=== PATIENT | female | born 1985 | race Caucasian/White ===

== ENCOUNTER 2019-05-15 20:32 | Emergency (ER) | payer OTHER ==
[2019-05-15] MEDS ORDERED: diphenhydrAMINE 50 MG/ML 1 ML VIAL IVP STA (21:30)
[2019-05-15] MEDS ORDERED: SODIUM CHLORIDE 0.9% 1,000 ML IV STA (21:30)
[2019-05-15] MEDS ORDERED: PYRIDOXINE 100 MG/ML 1 ML VIAL IVP STA (21:31)
[2019-05-15] MEDS ORDERED: DEXTROSE 5% IN WATER 1,000 ML IV STA (21:31)
[2019-05-15 21:43] LABS: Basophils # (A) 0.1 k/uL (0-0.2); Basophils % (A) 1 %; Eosinophils # (A) 0.1 k/uL (0-0.7); Eosinophils % (A) 2 %; HCT 35.8 % (34.0-46.0); HGB 12.3 gm/dL (11.4-16.0); Lymphocytes # (A) 1.8 k/uL (1.0-4.8); Lymphocytes % (A) 27 %; MCH 28.9 pg (25.0-35.0); MCHC 34.3 g/dL (31.0-37.0); MCV 84.5 fL (80.0-100.0); Mean Platelet Volume 7.3; Monocytes # (A) 0.5 k/uL (0-1.0); Monocytes % (A) 7 %; Neutrophils # (A) 4.1 k/uL (1.3-7.7); Neutrophils % (A) 62 %; Platelet Count 211 k/uL (150-450); RBC 4.23 m/uL (3.80-5.40); RDW 12.5 % (11.5-15.5); WBC 6.6 k/uL (3.8-10.6)
[2019-05-15 21:52] LABS: ALT 23 U/L (9-52); AST 18 U/L (14-36); African American GFR (CKD) >90 (>60 ml/min/1.73 sqM); Albumin 4.4 g/dL (3.5-5.0); Alkaline Phosphatase 51 U/L (38-126); Amylase 46 U/L (30-110); Anion Gap 11 mmol/L; Blood Urea Nitrogen 11 mg/dL (7-17); Calcium 9.3 mg/dL (8.4-10.2); Carbon Dioxide 25 mmol/L (22-30); Chloride 103 mmol/L (98-107); Glucose 84 mg/dL (74-99); Potassium 4.1 mmol/L (3.5-5.1); Sodium 139 mmol/L (137-145); Total Bilirubin 0.3 mg/dL (0.2-1.3); Total Protein 7.7 g/dL (6.3-8.2)
--- NOTE | 2019-05-15 22:14 | ED ---
Nausea/Vomiting/Diarrhea HPI - General Chief complaint: Nausea/Vomiting/Diarrhea Stated complaint: 8 weeks , nausea & vomiting Time Seen by Provider: 05/15/19 21:11 Source: patient Mode of arrival: ambulatory Limitations: no limitations - History of Present Illness Initial comments: 34 old female patient who is 8 weeks presents to the emergency department today for evaluation of nausea and vomiting 2 days. Patient states she has had increased and intermittent nausea and vomiting over the last week but has worsened over the last 2 days. Patient denies any hematemesis or bilious emesis. States she's been unable to keep down any food or fluids. She is not tried any medications for her symptoms. She is . States that she h as had hyperemesis with each of her previous pregnancies. She denies any fever or chills. Denies diarrhea. Denies any abdominal pain, vaginal bleeding, or vaginal discharge. She has established care with Dr. Conteh her first appointment is on May 28. She has had ultrasound confirming viable intrauterine pregnanc two weeks ago. Patient denies any recent rash, shortness breath, chest pain, constipation, back pain, numbness, tingling, dizziness, weakness, hematuria, dysuria, urinary urgency, urinary frequency, headache, visual changes, or any other complaints. - Related Data Home Medications Medication Instructions Recorded Confirmed Pnv No.95/Ferrous Fum/Folic AC 1 tab PO DAILY 05/15/19 05/15/19 [ Multivitamin Tablet] Previous Rx's Medication Instructions Recorded Doxylamine/Pyridoxine HCl (B6) 1 each PO HS #30 tablet. 05/15/19 [Kalee Boateng 10-10 mg Tablet] Allergies Allergy/AdvReac Type Severity Reaction Status Date / Time Sulfa (Sulfonamide Allergy Rash/Hives Verified 05/15/19 21:10 Antibiotics) Review of Systems ROS Statement: Those systems with pertinent positive or pertinent negative responses have been documented in the HPI. ROS Other: All systems not noted in ROS Statement are negative. Past Medical History Past Medical History: No Reported History History of Any Multi-Drug Resistant Organisms: None Reported Past Surgical History: Cholecystectomy Past Psychological History: No Psychological Hx Reported Smoking Status: Never smoker Past Alcohol Use History: None Reported Past Drug Use History: None Reported General Exam Limitations: no limitations General appearance: alert, in no apparent distress, other (This is a well- developed, well-nourished adult female patient in no acute distress. Vital signs upon presentation are temperature 98.0F, pulse 80, respirations 20, blood pressure 105/64, pulse ox 99% on room air.) Eye exam: Present: normal appearance, PERRL, EOMI. Absent: scleral icterus, conjunctival injection, periorbital swelling ENT exam: Present: normal exam, normal oropharynx, mucous membranes moist Respiratory exam: Present: normal lung sounds bilaterally. Absent: respiratory distress, wheezes, rales, rhonchi, stridor Cardiovascular Exam: Present: regular rate, normal rhythm, normal heart sounds. Absent: systolic murmur, diastolic murmur, rubs, gallop, clicks GI/Abdominal exam: Present: soft, normal bowel sounds. Absent: distended, tenderness, guarding, rebound, rigid Neurological exam: Present: alert, oriented X3, CN II-XII intact Psychiatric exam: Present: normal affect, normal mood Skin exam: Present: warm, dry, intact, normal color. Absent: rash Course Vital Signs 05/15/19 21:00 Temperature 98.0 F Pulse Rate 80 Respiratory 20 Rate Blood Pressure 105/64 O2 Sat by Pulse 99 Oximetry Medical Decision Making - Medical Decision Making 34 year-old female patient presented to the emergency department today for evaluation of nausea and vomiting. She is currently 8 weeks with her fourth . Physical examination reveals soft nontender abdomen. Labs reviewed and are unremarkable. Urinalysis negative for any evidence of infection. She was given IV fluids here in the emergency department she was given IV vitamin B6 and Benadryl. Limited bedside ultrasound was performed and showed evidence for cardiac activity. Patient denies any abdominal pain, vaginal bleeding, or vaginal discharge. Upon reevaluation patient does report improvement of symptoms. Vital signs remained stable. She'll be discharged home at this time to follow-up with her LINE DANCER for recheck as soon as possible. She will be given a prescription for likely just. Return parameters were discussed in detail. She verbalizes understanding and agrees with this plan. - Lab Data Result diagrams: 05/15/19 21:19 05/15/19 21:19 Lab Results 05/15/19 05/15/19 05/15/19 Range/Units 21:19 21:19 21:43 WBC 6.6 (3.8-10.6) k/uL RBC 4.23 (3.80-5.40) m/uL Hgb 12.3 (11.4-16.0) gm/dL Hct 35.8 (34.0-46.0) % MCV 84.5 (80.0-100.0) fL MCH 28.9 (25.0-35.0) pg MCHC 34.3 (31.0-37.0) g/dL RDW 12.5 (11.5-15.5) % Plt Count 211 (150-450) k/uL Neutrophils % 62 % Lymphocytes % 27 % Monocytes % 7 % Eosinophils % 2 % Basophils % 1 % Neutrophils # 4.1 (1.3-7.7) k/uL Lymphocytes # 1.8 (1.0-4.8) k/uL Monocytes # 0.5 (0-1.0) k/uL Eosinophils # 0.1 (0-0.7) k/uL Basophils # 0.1 (0-0.2) k/uL Sodium 139 (137-145) mmol/L Potassium 4.1 (3.5-5.1) mmol/L Chloride 103 (98-107) mmol/L Carbon Dioxide 25 (22-30) mmol/L Anion Gap 11 mmol/L BUN 11 (7-17) mg/dL Creatinine 0.56 (0.52-1.04) mg/dL Est GFR (CKD-EPI)AfAm >90 (>60 ml/min/1.73 sqM) Est GFR (CKD-EPI)NonAf >90 (>60 ml/min/1.73 sqM) Glucose 84 (74-99) mg/dL Calcium 9.3 (8.4-10.2) mg/dL Total Bilirubin 0.3 (0.2-1.3) mg/dL AST 18 (14-36) U/L ALT 23 (9-52) U/L Alkaline Phosphatase 51 (38-126) U/L Total Protein 7.7 (6.3-8.2) g/dL Albumin 4.4 (3.5-5.0) g/dL Amylase 46 (30-110) U/L Lipase 67 (23-300) U/L HCG, Quant 968041.0 mIU/mL Urine Color Urine Appearance (Clear) Urine pH (5.0-8.0) Ur Specific [place] (1.001-1.035) Urine Protein (Negative) Urine Glucose (UA) (Negative) Urine Ketones (Negative) Urine Blood (Negative) Urine Nitrite (Negative) Urine Bilirubin (Negative) Urine Urobilinogen (<2.0) mg/dL Ur Leukocyte Esterase (Negative) 05/15/19 Range/Units 22:55 WBC (3.8-10.6) k/uL RBC (3.80-5.40) m/uL Hgb (11.4-16.0) gm/dL Hct (34.0-46.0) % MCV (80.0-100.0) fL MCH (25.0-35.0) pg MCHC (31.0-37.0) g/dL RDW (11.5-15.5) % Plt Count (150-450) k/uL Neutrophils % % Lymphocytes % % Monocytes % % Eosinophils % % Basophils % % Neutrophils # (1.3-7.7) k/uL Lymphocytes # (1.0-4.8) k/uL Monocytes # (0-1.0) k/uL Eosinophils # (0-0.7) k/uL Basophils # (0-0.2) k/uL Sodium (137-145) mmol/L Potassium (3.5-5.1) mmol/L Chloride (98-107) mmol/L Carbon Dioxide (22-30) mmol/L Anion Gap mmol/L BUN (7-17) mg/dL Creatinine (0.52-1.04) mg/dL Est GFR (CKD-EPI)AfAm (>60 ml/min/1.73 sqM) Est GFR (CKD-EPI)NonAf (>60 ml/min/1.73 sqM) Glucose (74-99) mg/dL Calcium (8.4-10.2) mg/dL Total Bilirubin (0.2-1.3) mg/dL AST (14-36) U/L ALT (9-52) U/L Alkaline Phosphatase (38-126) U/L Total Protein (6.3-8.2) g/dL Albumin (3.5-5.0) g/dL Amylase (30-110) U/L Lipase (23-300) U/L HCG, Quant mIU/mL Urine Color Yellow Urine Appearance Clear (Clear) Urine pH 6.0 (5.0-8.0) Ur Specific [place] 1.014 (1.001-1.035) Urine Protein Negative (Negative) Urine Glucose (UA) Negative (Negative) Urine Ketones Negative (Negative) Urine Blood Negative (Negative) Urine Nitrite Negative (Negative) Urine Bilirubin Negative (Negative) Urine Urobilinogen <2.0 (<2.0) mg/dL Ur Leukocyte Esterase Negative (Negative) Disposition Clinical Impression: Vomiting during Disposition: HOME SELF-CARE Condition: Good Instructions (If sedation given, give patient instructions): Nausea and Vomiting in (ED) Additional Instructions: Start with a clear liquid diet and advance as tolerated. Take medication as directed. Eat small frequent meals. Follow up with your OBGYN for recheck as soon as possible. Follow up with your primary care physician for recheck in 1-2 days. Return to the emergency department for any new, worsening, or concerning symptoms. Your prescription was sent to the [facility] in [place]. Prescriptions: Doxylamine/Pyridoxine HCl (B6) [Kalee Boateng 10-10 mg Tablet] 1 each PO HS #30 tablet. Is patient prescribed a controlled substance at d/c from ED?: No Referrals: Kacy Conteh DO [Doctor of Osteopathic Medicine] - 1-2 days Time of Disposition: 23:26
[2019-05-15 23:03] LABS: Appearance,Urine Clear (Clear); Bilirubin,Urine Negative (Negative); Blood,Urine Negative (Negative); Color,Urine Yellow; Glucose,Urine (UA) Negative (Negative); Ketones,Urine Negative (Negative); Leukocyte Esterase,Urine Negative (Negative); Nitrite,Urine Negative (Negative); Protein,Urine Negative (Negative); Specific Gravity,Urine 1.014 (1.001-1.035); Urobilinogen,Urine <2.0 mg/dL (<2.0)
[2019-05-15 23:36] VITALS: BP 110/68; PULSE 86; RESP 18; TEMP 98.1
== END 2019-05-15 23:36 | disposition home or self-care (01) ==
LOC: EC 20:32
DX: O21.9 Vomiting of pregnancy, unspecified (principal); Z88.2 Allergy status to sulfonamides; Z90.49 Acquired absence of other specified parts of digestive tract; Z3A.08 8 weeks gestation of pregnancy
CPT/HCPCS: 36415; 80053; 82150; 83690; 85025; 81003; 84702; 99284; 96374; 96375; 96361 ×2; J1200; J3415

== ENCOUNTER 2019-05-30 18:17 | Emergency (ER) | payer OTHER ==
[2019-05-30] MEDS ORDERED: SODIUM CHLORIDE 0.9% 1,000 ML IV STA (20:31)
[2019-05-30] MEDS ORDERED: SODIUM CHLORIDE 0.9% 500 ML 500 ML IV STA (20:31)
[2019-05-30] MEDS ORDERED: ONDANSETRON 4 MG/2 ML VIAL IVP STA (20:31)
[2019-05-30] MEDS ORDERED: DEXTROSE 5% IN WATER 1,000 ML IV STA (20:32)
--- NOTE | 2019-05-30 21:07 | ED ---
General Adult HPI - General Chief complaint: Abdominal Pain Stated complaint: Vomiting-10 wks PG Time Seen by Provider: 05/30/19 20:20 Source: patient Mode of arrival: ambulatory Limitations: no limitations - History of Present Illness Initial comments: 34 old female patient who is 10 weeks presents to the emergency department today for evaluation of vomiting. Patient states that she has had significant morning sickness with this . She is . States that for the last 36 hours she's been unable to keep down any food or fluids. States that she is feeling weak and dehydrated. States she is having cramping in her abdomen and legs. Denies any abnormal vaginal bleeding or discharge. States that she was given takes Aegis to take at home which did not help. States that she was at her OB's office yesterday, was not given anything for nausea. States she did discuss use of Zofran which they approved is she understood the risks. She is requesting Zofran today. She denies any fevers, chills, diarrhea, constipation. She denies any recent travel or sick contacts. - Related Data Previous Rx's Medication Instructions Recorded Ondansetron [Zofran ODT] 4 mg PO Q8HR PRN #10 tab 05/31/19 Allergies Allergy/AdvReac Type Severity Reaction Status Date / Time Sulfa (Sulfonamide Allergy Rash/Hives Verified 05/30/19 22:01 Antibiotics) Review of Systems ROS Statement: Those systems with pertinent positive or pertinent negative responses have been documented in the HPI. ROS Other: All systems not noted in ROS Statement are negative. Past Medical History Past Medical History: No Reported History History of Any Multi-Drug Resistant Organisms: None Reported Past Surgical History: Cholecystectomy Past Psychological History: No Psychological Hx Reported Smoking Status: Never smoker Past Alcohol Use History: None Reported Past Drug Use History: None Reported General Exam Limitations: no limitations General appearance: alert, in no apparent distress, other (This is a well- developed, well-nourished adult female patient in no acute distress. Vital signs upon presentation are temperature 98.3F, pulse 1:15, respirations 20, blood pressure 106/66, pulse ox 99% on room air.) Eye exam: Present: normal appearance, PERRL, EOMI. Absent: scleral icterus, conjunctival injection, periorbital swelling ENT exam: Present: normal exam, normal oropharynx, mucous membranes moist Respiratory exam: Present: normal lung sounds bilaterally. Absent: respiratory distress, wheezes, rales, rhonchi, stridor Cardiovascular Exam: Present: regular rate, normal rhythm, normal heart sounds. Absent: systolic murmur, diastolic murmur, rubs, gallop, clicks GI/Abdominal exam: Present: soft, normal bowel sounds. Absent: distended, tenderness, guarding, rebound, rigid Neurological exam: Present: alert, oriented X3, CN II-XII intact Psychiatric exam: Present: normal affect, normal mood Skin exam: Present: warm, dry, intact, normal color. Absent: rash Course Vital Signs 05/30/19 05/31/19 18:53 00:24 Temperature 98.3 F 98 F Pulse Rate 115 H 100 Respiratory 20 18 Rate Blood Pressure 106/66 101/60 O2 Sat by Pulse 99 97 Oximetry Medical Decision Making - Medical Decision Making 34 year-old female patient who is 10 weeks presents to the emergency department today for evaluation of vomiting for the last 36 hours. Physical examination reveals soft nontender abdomen. Labs are reviewed and are unremarkable. Denies urinary symptoms. Patient is given IV fluids and nausea medication here in the emergency department. She did receive Zofran. We did discuss possible defects from Zofran administration. States she did speak to her house rn's office who agreed with her receiving the Zofran if necessary. Patient requested the medication. She'll be discharged home with a prescription. She is feeling better upon completion. She is tolerating oral intake. She is instructed to follow-up with her SCIENTIFIC PROCESS OPERATOR for recheck as soon as possible. Return parameters discussed in detail. She verbalizes understanding and agrees with this plan. - Lab Data Result diagrams: 05/30/19 21:23 05/30/19 21:23 Lab Results 05/30/19 05/30/19 05/30/19 Range/Units 21:23 21:23 22:30 WBC 9.1 (3.8-10.6) k/uL RBC 4.36 (3.80-5.40) m/uL Hgb 12.5 (11.4-16.0) gm/dL Hct 37.8 (34.0-46.0) % MCV 86.7 (80.0-100.0) fL MCH 28.7 (25.0-35.0) pg MCHC 33.2 (31.0-37.0) g/dL RDW 12.2 (11.5-15.5) % Plt Count 209 (150-450) k/uL Neutrophils % 84 % Lymphocytes % 5 % Monocytes % 7 % Eosinophils % 2 % Basophils % 1 % Neutrophils # 7.6 (1.3-7.7) k/uL Lymphocytes # 0.5 L (1.0-4.8) k/uL Monocytes # 0.7 (0-1.0) k/uL Eosinophils # 0.1 (0-0.7) k/uL Basophils # 0.1 (0-0.2) k/uL Sodium 137 (137-145) mmol/L Potassium 3.9 (3.5-5.1) mmol/L Chloride 101 (98-107) mmol/L Carbon Dioxide 23 (22-30) mmol/L Anion Gap 13 mmol/L BUN 9 (7-17) mg/dL Creatinine 0.47 L (0.52-1.04) mg/dL Est GFR (CKD-EPI)AfAm >90 (>60 ml/min/1.73 sqM) Est GFR (CKD-EPI)NonAf >90 (>60 ml/min/1.73 sqM) Glucose 82 (74-99) mg/dL Calcium 9.7 (8.4-10.2) mg/dL Total Bilirubin 0.6 (0.2-1.3) mg/dL AST 21 (14-36) U/L ALT 21 (9-52) U/L Alkaline Phosphatase 73 (38-126) U/L Total Protein 8.0 (6.3-8.2) g/dL Albumin 4.6 (3.5-5.0) g/dL Amylase 44 (30-110) U/L Lipase 49 (23-300) U/L Urine Color Yellow Urine Appearance Cloudy H (Clear) Urine pH 6.0 (5.0-8.0) Ur Specific [place] 1.026 (1.001-1.035) Urine Protein 1+ H (Negative) Urine Glucose (UA) Negative (Negative) Urine Ketones 4+ H (Negative) Urine Blood Trace H (Negative) Urine Nitrite Negative (Negative) Urine Bilirubin Negative (Negative) Urine Urobilinogen <2.0 (<2.0) mg/dL Ur Leukocyte Esterase Small H (Negative) Urine RBC 4 (0-5) /hpf Urine WBC 3 (0-5) /hpf Ur Squamous Epith Cells 5 H (0-4) /hpf Urine Bacteria Rare H (None) /hpf Urine Mucus Many H (None) /hpf Disposition Clinical Impression: Hyperemesis gravidarum Disposition: HOME SELF-CARE Condition: Good Instructions (If sedation given, give patient instructions): Hyperemesis Gravidarum (ED), Clear Liquid Diet (ED) Additional Instructions: Follow clear liquid diet and advance as tolerated. Take medications as directed. Follow-up with your SCIENTIFIC PROCESS OPERATOR for recheck as soon as possible. Return to the emergency department immediately for any new, worsening, or concerning symptoms. Prescriptions: Ondansetron [Zofran ODT] 4 mg PO Q8HR PRN #10 tab PRN Reason: Nausea Is patient prescribed a controlled substance at d/c from ED?: No Referrals: None,Stated [Primary Care Provider] - 1-2 days Time of Disposition: 00:18
[2019-05-30 21:34] LABS: Basophils # (A) 0.1 k/uL (0-0.2); Basophils % (A) 1 %; Eosinophils # (A) 0.1 k/uL (0-0.7); Eosinophils % (A) 2 %; HCT 37.8 % (34.0-46.0); HGB 12.5 gm/dL (11.4-16.0); Lymphocytes # (A) 0.5 k/uL (1.0-4.8); Lymphocytes % (A) 5 %; MCH 28.7 pg (25.0-35.0); MCHC 33.2 g/dL (31.0-37.0); MCV 86.7 fL (80.0-100.0); Mean Platelet Volume 7.3; Monocytes # (A) 0.7 k/uL (0-1.0); Monocytes % (A) 7 %; Neutrophils # (A) 7.6 k/uL (1.3-7.7); Neutrophils % (A) 84 %; Platelet Count 209 k/uL (150-450); RBC 4.36 m/uL (3.80-5.40); RDW 12.2 % (11.5-15.5); WBC 9.1 k/uL (3.8-10.6)
[2019-05-30 21:41] LABS: ALT 21 U/L (9-52); AST 21 U/L (14-36); African American GFR (CKD) >90 (>60 ml/min/1.73 sqM); Albumin 4.6 g/dL (3.5-5.0); Alkaline Phosphatase 73 U/L (38-126); Amylase 44 U/L (30-110); Anion Gap 13 mmol/L; Blood Urea Nitrogen 9 mg/dL (7-17); Calcium 9.7 mg/dL (8.4-10.2); Carbon Dioxide 23 mmol/L (22-30); Chloride 101 mmol/L (98-107); Glucose 82 mg/dL (74-99); Potassium 3.9 mmol/L (3.5-5.1); Sodium 137 mmol/L (137-145); Total Bilirubin 0.6 mg/dL (0.2-1.3)
[2019-05-30 22:48] LABS: Appearance,Urine Cloudy (Clear); Bacteria,Urine Rare /hpf; Bilirubin,Urine Negative (Negative); Blood,Urine Trace (Negative); Color,Urine Yellow; Glucose,Urine (UA) Negative (Negative); Ketones,Urine 4+ (Negative); Leukocyte Esterase,Urine Small (Negative); Mucus,Urine Many /hpf; Nitrite,Urine Negative (Negative); Protein,Urine 1+ (Negative); RBC,Urine 4 /hpf (0-5); Specific Gravity,Urine 1.026 (1.001-1.035); Squamous Epithelial Cell,Urine 5 /hpf (0-4); Urobilinogen,Urine <2.0 mg/dL (<2.0); WBC,Urine 3 /hpf (0-5)
[2019-05-31] MEDS ORDERED: ONDANSETRON 4 MG ODT STARTER PACK 2 TAB BTL PO STA (00:18)
[2019-05-31 00:25] VITALS: BP 101/60; PULSE 100; RESP 18; TEMP 98
== END 2019-05-31 00:26 | disposition home or self-care (01) ==
LOC: EC 18:17
DX: O21.0 Mild hyperemesis gravidarum (principal); O99.89 Other specified diseases and conditions complicating pregnancy, childbirth and the puerperium; R53.1 Weakness; R25.2 Cramp and spasm; R10.9 Unspecified abdominal pain; Z88.2 Allergy status to sulfonamides; Z90.49 Acquired absence of other specified parts of digestive tract; Z3A.10 10 weeks gestation of pregnancy
CPT/HCPCS: 36415; 80053; 82150; 83690; 85025; 81001; 99284; 96374; 96361 ×3; J2405

== ENCOUNTER 2019-06-06 08:57 | Emergency (ER) | payer OTHER ==
[2019-06-06 09:03] VITALS: TEMP 98.1
[2019-06-06] MEDS ORDERED: METOCLOPRAMIDE 5 MG/ML 2 ML VIAL IVP STA (09:28)
[2019-06-06] MEDS ORDERED: SODIUM CHLORIDE 0.9% 1,000 ML IV STA (09:28)
[2019-06-06] MEDS ORDERED: SODIUM CHLORIDE 0.9% 2,000 ML IV STA (09:28)
--- NOTE | 2019-06-06 09:35 | ED ---
General Adult HPI - General Chief complaint: Nausea/Vomiting/Diarrhea Stated complaint: vomiting Time Seen by Provider: 06/06/19 09:07 Source: patient, RN notes reviewed, old records reviewed, Caregiver Mode of arrival: ambulatory Limitations: no limitations - History of Present Illness Initial comments: Patient is a 34-year-old female, . Presents today for nausea and vomiting for the past 2-3 days. Patient states she is approximately 11 weeks . Patient states that she has no specific abdominal pain, but she does report occasional lower cramping. Denies any vaginal bleeding or discharge at this time. Patient states that she's had no bloody emesis. She's had some normal stools. - Related Data Previous Rx's Medication Instructions Recorded Ondansetron [Zofran ODT] 4 mg PO Q8HR PRN #10 tab 05/31/19 Doxylamine Succinate [Unisom] 25 mg PO BID #12 tablet 06/06/19 Allergies Allergy/AdvReac Type Severity Reaction Status Date / Time Sulfa (Sulfonamide Allergy Rash/Hives Verified 06/06/19 09:21 Antibiotics) Review of Systems ROS Statement: Those systems with pertinent positive or pertinent negative responses have been documented in the HPI. ROS Other: All systems not noted in ROS Statement are negative. Past Medical History Past Medical History: No Reported History History of Any Multi-Drug Resistant Organisms: None Reported Past Surgical History: Cholecystectomy Past Psychological History: No Psychological Hx Reported Smoking Status: Never smoker Past Alcohol Use History: None Reported Past Drug Use History: None Reported General Exam - General Exam Comments Initial Comments: 34-year-old female. Limitations: no limitations General appearance: alert, in no apparent distress Head exam: Present: atraumatic, normocephalic, normal inspection Eye exam: Present: normal appearance, PERRL, EOMI. Absent: scleral icterus, conjunctival injection, periorbital swelling ENT exam: Present: normal exam, mucous membranes dry, mucous membranes moist. Absent: normal oropharynx Neck exam: Present: normal inspection. Absent: tenderness, meningismus, lymphadenopathy Respiratory exam: Present: normal lung sounds bilaterally. Absent: respiratory distress, wheezes, rales, rhonchi, stridor Cardiovascular Exam: Present: regular rate, normal rhythm, normal heart sounds. Absent: systolic murmur, diastolic murmur, rubs, gallop, clicks GI/Abdominal exam: Present: soft, normal bowel sounds. Absent: distended, tenderness, guarding, rebound, rigid Extremities exam: Present: normal inspection, full ROM, normal capillary refill. Absent: tenderness, pedal edema, joint swelling, calf tenderness Back exam: Present: normal inspection Neurological exam: Present: alert Psychiatric exam: Present: normal affect, normal mood Skin exam: Present: warm, dry, intact, normal color. Absent: rash Course Vital Signs 06/06/19 09:01 Temperature 98.1 F Pulse Rate 103 H Respiratory 18 Rate Blood Pressure 109/68 O2 Sat by Pulse 95 Oximetry Medical Decision Making - Medical Decision Making Patient is a 34-year-old female, G4, P3 approximately 11 weeks . She presents for nausea and vomiting. States she has some mild lower abdominal cramping but denies any vaginal bleeding or discharge. At this time patient's labwork was reviewed and unremarkable. Urinalysis is positive for ketones and dehydration. At this time patient's urinalysis did show some minor bacteria this will be cultured. She does have follow-up with her DIE PRESSER soon Dr. Puckett. Ultrasound was completed today shows heart tones measuring 1 68 bpm. Patient otherwise appears well. I discussed with discharge Patient with B6 for nausea as well as following up with her DIE PRESSER. All questions answered return parameters were discussed. - Lab Data Result diagrams: 06/06/19 09:27 06/06/19 09:27 Lab Results 06/06/19 06/06/19 06/06/19 Range/Units 09:27 09:27 09:27 WBC 6.3 (3.8-10.6) k/uL RBC 4.25 (3.80-5.40) m/uL Hgb 12.6 (11.4-16.0) gm/dL Hct 35.9 (34.0-46.0) % MCV 84.5 (80.0-100.0) fL MCH 29.6 (25.0-35.0) pg MCHC 35.1 (31.0-37.0) g/dL RDW 11.8 (11.5-15.5) % Plt Count 205 (150-450) k/uL Neutrophils % 75 % Lymphocytes % 16 % Monocytes % 6 % Eosinophils % 1 % Basophils % 0 % Neutrophils # 4.7 (1.3-7.7) k/uL Lymphocytes # 1.0 (1.0-4.8) k/uL Monocytes # 0.4 (0-1.0) k/uL Eosinophils # 0.1 (0-0.7) k/uL Basophils # 0.0 (0-0.2) k/uL Sodium 136 L (137-145) mmol/L Potassium 3.9 (3.5-5.1) mmol/L Chloride 104 (98-107) mmol/L Carbon Dioxide 22 (22-30) mmol/L Anion Gap 10 mmol/L BUN 11 (7-17) mg/dL Creatinine 0.49 L (0.52-1.04) mg/dL Est GFR (CKD-EPI)AfAm >90 (>60 ml/min/1.73 sqM) Est GFR (CKD-EPI)NonAf >90 (>60 ml/min/1.73 sqM) Glucose 85 (74-99) mg/dL Calcium 9.4 (8.4-10.2) mg/dL Total Bilirubin 0.6 (0.2-1.3) mg/dL AST 24 (14-36) U/L ALT 32 (9-52) U/L Alkaline Phosphatase 81 (38-126) U/L Total Protein 7.4 (6.3-8.2) g/dL Albumin 4.1 (3.5-5.0) g/dL Urine Color Yellow Urine Appearance Cloudy H (Clear) Urine pH 6.0 (5.0-8.0) Ur Specific [place] 1.027 (1.001-1.035) Urine Protein 1+ H (Negative) Urine Glucose (UA) Negative (Negative) Urine Ketones 2+ H (Negative) Urine Blood Trace H (Negative) Urine Nitrite Negative (Negative) Urine Bilirubin Negative (Negative) Urine Urobilinogen 3.0 (<2.0) mg/dL Ur Leukocyte Esterase Negative (Negative) Urine RBC 3 (0-5) /hpf Urine WBC 3 (0-5) /hpf Ur Squamous Epith Cells 8 H (0-4) /hpf Urine Bacteria Rare H (None) /hpf Urine Mucus Many H (None) /hpf - Radiology Data Radiology results: report reviewed Limited exam confirming heart tones show normal heart rate of 1 60 bpm. Disposition Clinical Impression: Hyperemesis gravidarum, Vomiting during Disposition: HOME SELF-CARE Condition: Good Instructions (If sedation given, give patient instructions): Acute Nausea and Vomiting (ED) Additional Instructions: Please use medication as discussed. Please follow up with family doctor if symptoms have not improved over the next two days. Please return to the emerg ency room if your symptoms increase or worsen or for any other concerns. Prescriptions: Doxylamine Succinate [Unisom] 25 mg PO BID #12 tablet Is patient prescribed a controlled substance at d/c from ED?: No Referrals: None,Stated [Primary Care Provider] - 1-2 days Time of Disposition: 11:35
[2019-06-06 09:45] LABS: Basophils % (A) 0 %; Eosinophils # (A) 0.1 k/uL (0-0.7); Eosinophils % (A) 1 %; HCT 35.9 % (34.0-46.0); HGB 12.6 gm/dL (11.4-16.0); Lymphocytes % (A) 16 %; MCH 29.6 pg (25.0-35.0); MCHC 35.1 g/dL (31.0-37.0); MCV 84.5 fL (80.0-100.0); Mean Platelet Volume 6.1; Monocytes # (A) 0.4 k/uL (0-1.0); Monocytes % (A) 6 %; Neutrophils # (A) 4.7 k/uL (1.3-7.7); Neutrophils % (A) 75 %; Platelet Count 205 k/uL (150-450); RBC 4.25 m/uL (3.80-5.40); RDW 11.8 % (11.5-15.5); WBC 6.3 k/uL (3.8-10.6)
[2019-06-06] MEDS ORDERED: ONDANSETRON 4 MG/2 ML VIAL IVP STA (09:52)
[2019-06-06 09:56] LABS: Appearance,Urine Cloudy (Clear); Bacteria,Urine Rare /hpf; Bilirubin,Urine Negative (Negative); Blood,Urine Trace (Negative); Color,Urine Yellow; Glucose,Urine (UA) Negative (Negative); Ketones,Urine 2+ (Negative); Leukocyte Esterase,Urine Negative (Negative); Mucus,Urine Many /hpf; Nitrite,Urine Negative (Negative); Protein,Urine 1+ (Negative); RBC,Urine 3 /hpf (0-5); Specific Gravity,Urine 1.027 (1.001-1.035); Squamous Epithelial Cell,Urine 8 /hpf (0-4)
[2019-06-06 10:47] LABS: ALT 32 U/L (9-52); AST 24 U/L (14-36); African American GFR (CKD) >90 (>60 ml/min/1.73 sqM); Albumin 4.1 g/dL (3.5-5.0); Alkaline Phosphatase 81 U/L (38-126); Anion Gap 10 mmol/L; Blood Urea Nitrogen 11 mg/dL (7-17); Calcium 9.4 mg/dL (8.4-10.2); Carbon Dioxide 22 mmol/L (22-30); Chloride 104 mmol/L (98-107); Glucose 85 mg/dL (74-99); Potassium 3.9 mmol/L (3.5-5.1); Sodium 136 mmol/L (137-145); Total Bilirubin 0.6 mg/dL (0.2-1.3); Total Protein 7.4 g/dL (6.3-8.2)
--- NOTE | 2019-06-06 11:14 | US ---
EXAMINATION TYPE: US OB limited DATE OF EXAM: 06/06/2019 COMPARISON: NONE CLINICAL HISTORY: heart tones only. EXAM PERFORMED: Transabdominal (TA) No growth performed on today?s study per ordering physician HEART RATE: 168 bpm RHYTHM: Normal IMPRESSION: Limited exam to confirm heart tones only does confirm a normal heart rate of 168 b pm.
[2019-06-06 11:44] VITALS: BP 103/55; PULSE 90; RESP 16
== END 2019-06-06 12:00 | disposition home or self-care (01) ==
LOC: EC 08:57
DX: O21.0 Mild hyperemesis gravidarum (principal); O99.281 Endocrine, nutritional and metabolic diseases complicating pregnancy, first trimester; E86.0 Dehydration; O99.89 Other specified diseases and conditions complicating pregnancy, childbirth and the puerperium; R82.71 Bacteriuria; R10.30 Lower abdominal pain, unspecified; Z88.2 Allergy status to sulfonamides; Z90.49 Acquired absence of other specified parts of digestive tract; Z3A.11 11 weeks gestation of pregnancy; Z53.20 Procedure and treatment not carried out because of patient's decision for unspecified reasons
CPT/HCPCS: 36415; 80053; 85025; 81001; 76815; 99284; 96374; 96361 ×2; J2405

== ENCOUNTER → 2019-06-06 | Outpatient (CLI) | payer OTHER ==
--- NOTE | 2019-06-07 14:26 | US ---
EXAMINATION TYPE: Transabdominal DATE OF EXAM: 06/06/2019 4:32 PM COMPARISON: NONE CLINICAL HISTORY: O09.5 Advanced Maternal Age. Confirm dates EXAM PERFORMED: Transabdominal (TA) EXAM MEASUREMENTS: GESTATIONAL AGE / DATING Physician Established: Not yet established Dates by LMP: 03/17/2019 (11 weeks/4 days) EDC: 12/22/2019 Dates by First Scan: No previous this is first scan Dates by Current Scan for: (11 weeks/2 days) EDC: 12/24/2019 MATERNAL ANATOMY Uterus: 12.5 x 7.7 x 9.7 cm Right Ovary: 3.4 x 2.1 x 2.7 cm Left Ovary: 3.2 x 1.7 x 3.1 Post CDS / Adnexa: wnl Presence of free fluid: none GESTATION / SURVEY CRL: 4.5 cm (11 weeks/2 days) Yolk Sac (normal less than 6mm): not seen Heart Rate: 175 bpm Rhythm: Normal IUP: Viable IUP Nuchal Translucency 10-14wks (normal less than 3mm): 1 mm Date of LMP: 03/17/2019 Viable IUP that correlates with LMP. IMPRESSION: Single viable intrauterine corresponding to an ultrasound age 11 weeks 2 days with estimate d date of delivery 12/24/2019 by today's exam.
== END | disposition home or self-care (01) ==
LOC: RADUSWWP 16:08
PROVIDERS: ATTEND Obstetrics & Gynecology
DX: Z36.89 Encounter for other specified antenatal screening (principal); Z3A.11 11 weeks gestation of pregnancy
CPT/HCPCS: 76801; 76813

== ENCOUNTER 2019-06-12 11:40 | Emergency (ER) | payer OTHER ==
[2019-06-12] MEDS ORDERED: ONDANSETRON 4 MG/2 ML VIAL IVP STA (12:12)
[2019-06-12] MEDS ORDERED: SODIUM CHLORIDE 0.9% 1,000 ML IV STA (12:13)
--- NOTE | 2019-06-12 12:40 | ED ---
General Adult HPI - General Source: patient Mode of arrival: ambulatory Limitations: no limitations <Michele Berry - Last Filed: 06/12/19 14:00> <Kamille Ramirez - Last Filed: 06/17/19 13:20> - General Chief complaint: Nausea/Vomiting/Diarrhea Stated complaint: Vomiting Time Seen by Provider: 06/12/19 12:02 - History of Present Illness Initial comments: Patient is a 34-year-old, , 12 week female presenting to the emergency department with chief complaint of nausea vomiting. Patient reports she has developed continuous, nonbilious vomiting since yesterday. Patient reports she is come to the ED multiple times for the same symptoms. Patient reports she was instructed by her mop machine operator to have Zofran IV whenever she develops severe symptoms. Patient does report a headache but states this is typical for due to the vomiting. Patient denies any abdominal pain or back pain. Patient denies any unilateral calf tenderness or swelling. Patient denies taking any medication to alleviate the symptoms. (Michele Berry) - Related Data Home Medications Medication Instructions Recorded Confirmed Acetaminophen Tab [Tylenol Tab] 500 mg PO Q6H PRN 06/12/19 06/12/19 Previous Rx's Medication Instructions Recorded Cephalexin [Keflex] 500 mg PO Q12HR 7 Days #14 cap 06/15/19 Allergies Allergy/AdvReac Type Severity Reaction Status Date / Time Sulfa (Sulfonamide Allergy Rash/Hives Verified 06/15/19 19:36 Antibiotics) Review of Systems ROS Other: All systems not noted in ROS Statement are negative. <Michele Berry - Last Filed: 06/12/19 14:00> ROS Other: All systems not noted in ROS Statement are negative. <Kamille Ramirez - Last Filed: 06/17/19 13:20> ROS Statement: Those systems with pertinent positive or pertinent negative responses have been documented in the HPI. Past Medical History Past Medical History: No Reported History History of Any Multi-Drug Resistant Organisms: None Reported Past Surgical History: Cholecystectomy Past Psychological History: No Psychological Hx Reported Smoking Status: Never smoker Past Alcohol Use History: None Reported Past Drug Use History: None Reported <Michele Berry - Last Filed: 06/12/19 14:00> General Exam Limitations: no limitations General appearance: alert, in no apparent distress Head exam: Present: atraumatic, normocephalic, normal inspection Eye exam: Present: normal appearance Pupils: Present: normal accommodation ENT exam: Present: normal exam, normal oropharynx, mucous membranes moist, TM's normal bilaterally, normal external ear exam Neck exam: Present: normal inspection, full ROM Cardiovascular Exam: Present: regular rate, normal rhythm, normal heart sounds Extremities exam: Present: normal inspection, full ROM, normal capillary refill Back exam: Present: normal inspection, full ROM Neurological exam: Present: alert, oriented X3 Psychiatric exam: Present: normal affect, normal mood Skin exam: Present: warm, intact, normal color. Absent: rash <Michele Berry - Last Filed: 06/12/19 14:00> Course Vital Signs 06/12/19 06/12/19 11:56 14:12 Temperature 98 F 97.7 F Pulse Rate 105 H 86 Respiratory 20 18 Rate Blood Pressure 109/67 100/61 O2 Sat by Pulse 99 100 Oximetry Medical Decision Making - Lab Data Result diagrams: 06/12/19 12:57 06/12/19 12:57 <Michele Berry - Last Filed: 06/12/19 14:00> - Lab Data Result diagrams: 06/12/19 12:57 06/12/19 12:57 <Kamille Ramirez - Last Filed: 06/17/19 13:20> - Medical Decision Making Patient is a 34-year-old, , 12 week female presenting to emergency Department with chief complaint nausea and vomiting. This is been an ongoing issue for the patient which she comes to the emergency department for. [facility] only informed her to take Zofran IV for severe nausea vomiting but never oral Zofran. Patient does not tolerate Reglan well. Patient vised to follow-up with her mop machine operator for outpatient antiemetic medication. Patient w as given fluids and IV Zofran. Laboratory work is unremarkable. On reevaluation patient reports improvement in symptoms and is ready go home. Strict return parameters were thoroughly discussed with patient was understanding and agreeable. Case discussed with physician. (Michele Berry) I was available for consultation in the emergency department. The history and physical exam were done by the midlevel provider. I was consulted for this patients care. I reviewed the case with the midlevel provider and based on their presentation of the patient, I agree with the assessment, medical decision making and plan of care as documented. Chart was dictated using [email or web address] dictation software. Attempts were made to correct any dictation errors however some typographical errors may persist. (Kamille Ramirez) - Lab Data Lab Results 06/12/19 06/12/19 06/12/19 Range/Units 12:30 12:57 12:57 WBC 6.6 (3.8-10.6) k/uL RBC 3.95 (3.80-5.40) m/uL Hgb 11.5 (11.4-16.0) gm/dL Hct 33.8 L (34.0-46.0) % MCV 85.7 (80.0-100.0) fL MCH 29.2 (25.0-35.0) pg MCHC 34.1 (31.0-37.0) g/dL RDW 11.8 (11.5-15.5) % Plt Count 202 (150-450) k/uL Sodium 137 (137-145) mmol/L Potassium 3.9 (3.5-5.1) mmol/L Chloride 105 (98-107) mmol/L Carbon Dioxide 25 (22-30) mmol/L Anion Gap 7 mmol/L BUN 10 (7-17) mg/dL Creatinine 0.45 L (0.52-1.04) mg/dL Est GFR (CKD-EPI)AfAm >90 (>60 ml/min/1.73 sqM) Est GFR (CKD-EPI)NonAf >90 (>60 ml/min/1.73 sqM) Glucose 86 (74-99) mg/dL Calcium 8.9 (8.4-10.2) mg/dL Total Bilirubin 0.3 (0.2-1.3) mg/dL AST 19 (14-36) U/L ALT 24 (9-52) U/L Alkaline Phosphatase 66 (38-126) U/L Total Protein 6.7 (6.3-8.2) g/dL Albumin 3.7 (3.5-5.0) g/dL HCG, Quant 392091.0 mIU/mL Urine Color Yellow Urine Appearance Cloudy H (Clear) Urine pH 6.5 (5.0-8.0) Ur Specific [place] 1.021 (1.001-1.035) Urine Protein Trace H (Negative) Urine Glucose (UA) Negative (Negative) Urine Ketones 1+ H (Negative) Urine Blood Negative (Negative) Urine Nitrite Negative (Negative) Urine Bilirubin Negative (Negative) Urine Urobilinogen 6.0 (<2.0) mg/dL Ur Leukocyte Esterase Small H (Negative) Urine RBC 1 (0-5) /hpf Urine WBC 5 (0-5) /hpf Ur Squamous Epith Cells 18 H (0-4) /hpf Urine Bacteria Occasional H (None) /hpf Urine Mucus Many H (None) /hpf Disposition Is patient prescribed a controlled substance at d/c from ED?: No Time of Disposition: 13:58 <Michele Berry - Last Filed: 06/12/19 14:00> <Kamille Ramirez - Last Filed: 06/17/19 13:20> Clinical Impression: Nausea & vomiting Disposition: HOME SELF-CARE Condition: Stable Instructions (If sedation given, give patient instructions): Acute Nausea and Vomiting (ED) Additional Instructions: Please follow with mop machine operator for outpatient antiemetic medication. Please return to emergency department if symptoms worsen. Referrals: None,Stated [Primary Care Provider] - 1-2 days
[2019-06-12 12:53] LABS: Appearance,Urine Cloudy (Clear); Bacteria,Urine Occasional /hpf; Bilirubin,Urine Negative (Negative); Blood,Urine Negative (Negative); Color,Urine Yellow; Glucose,Urine (UA) Negative (Negative); Ketones,Urine 1+ (Negative); Leukocyte Esterase,Urine Small (Negative); Mucus,Urine Many /hpf; Nitrite,Urine Negative (Negative); PH, Urine 6.5 (5.0-8.0); Protein,Urine Trace (Negative); RBC,Urine 1 /hpf (0-5); Specific Gravity,Urine 1.021 (1.001-1.035); Squamous Epithelial Cell,Urine 18 /hpf (0-4)
[2019-06-12 13:15] LABS: HCT 33.8 % (34.0-46.0); HGB 11.5 gm/dL (11.4-16.0); MCH 29.2 pg (25.0-35.0); MCHC 34.1 g/dL (31.0-37.0); MCV 85.7 fL (80.0-100.0); Mean Platelet Volume 6.4; Platelet Count 202 k/uL (150-450); RBC 3.95 m/uL (3.80-5.40); RDW 11.8 % (11.5-15.5); WBC 6.6 k/uL (3.8-10.6)
[2019-06-12 13:27] LABS: ALT 24 U/L (9-52); AST 19 U/L (14-36); African American GFR (CKD) >90 (>60 ml/min/1.73 sqM); Albumin 3.7 g/dL (3.5-5.0); Alkaline Phosphatase 66 U/L (38-126); Anion Gap 7 mmol/L; Blood Urea Nitrogen 10 mg/dL (7-17); Calcium 8.9 mg/dL (8.4-10.2); Carbon Dioxide 25 mmol/L (22-30); Chloride 105 mmol/L (98-107); Glucose 86 mg/dL (74-99); Potassium 3.9 mmol/L (3.5-5.1); Sodium 137 mmol/L (137-145); Total Bilirubin 0.3 mg/dL (0.2-1.3); Total Protein 6.7 g/dL (6.3-8.2)
[2019-06-12 14:14] VITALS: BP 100/61; PULSE 86; RESP 18; TEMP 97.7
== END 2019-06-12 14:14 | disposition home or self-care (01) ==
LOC: EC 11:40
DX: O21.9 Vomiting of pregnancy, unspecified (principal); Z3A.12 12 weeks gestation of pregnancy; Z88.2 Allergy status to sulfonamides
CPT/HCPCS: 36415; 80053; 85027; 81001; 84702; 99284; 96374; 96361; J2405

== ENCOUNTER 2019-06-15 19:21 | Emergency (ER) | payer OTHER ==
[2019-06-15 19:36] VITALS: RESP 20; TEMP 98.2
[2019-06-15] MEDS ORDERED: ONDANSETRON 4 MG/2 ML VIAL IVP STA (20:04)
[2019-06-15] MEDS ORDERED: SODIUM CHLORIDE 0.9% 1,000 ML IV STA (20:04)
--- NOTE | 2019-06-15 20:16 | ED ---
General Adult HPI - General Source: patient, RN notes reviewed, old records reviewed Mode of arrival: ambulatory Limitations: no limitations <Carlos Hollis - Last Filed: 06/15/19 20:59> <Kamille Ramirez - Last Filed: 06/17/19 16:51> - General Chief complaint: Nausea/Vomiting/Diarrhea Stated complaint: Vomiting, 13 Wks Time Seen by Provider: 06/15/19 19:49 - History of Present Illness Initial comments: 34 old female patient who is a approximately 13 weeks gestation presents to the chief complaint of nausea vomiting. Patient reports has been ongoing for approximately 24 hours. Patient was that her BUTTON PUNCHER is Dr. Conteh. Patient states that she was told by her registry rn when these situations arise to come the ER for IV fluids and Zofran. Patient force that she has had this issue and her 3 prior pregnancies. Patient reported that she has very mild amount abdominal cramping from the nausea vomiting. Denies any other abdominal pain, denies any vaginal bleeding, denies any dysuria. Systemic: Pt denies fatigue, fever/chills, rash. Pt denies weakness, night sweats, weight loss. Neuro: Pt denies headache, visual disturbances, syncope or pre-syncope. HEENT: Pt denies ocular discharge or irritation, otalgia, rhinorrhea, pharyngitis or notable lymphadenopathy. Cardiopulmonary: Pt denies chest pain, SOB, heart palpitations, dyspnea on exertion. Abdominal/GI: Pt denies abdominal pain, n/v/d. : Pt denies dysuria, burning w/ urination, frequency/urgency. Denies new onset urinary or bowel incontinence. MSK: Pt denies myalgia, loss of strength or function in extremities. Neuro: Pt denies new onset weakness, paresthesias. (Carlos Hollis) - Related Data Home Medications Medication Instructions Recorded Confirmed Acetaminophen Tab [Tylenol Tab] 500 mg PO Q6H PRN 06/12/19 06/12/19 Previous Rx's Medication Instructions Recorded Cephalexin [Keflex] 500 mg PO Q12HR 7 Days #14 cap 06/15/19 Allergies Allergy/AdvReac Type Severity Reaction Status Date / Time Sulfa (Sulfonamide Allergy Rash/Hives Verified 06/15/19 19:36 Antibiotics) Review of Systems ROS Other: All systems not noted in ROS Statement are negative. <Carlos Hollis - Last Filed: 06/15/19 20:59> ROS Other: All systems not noted in ROS Statement are negative. <Kamille Ramirez - Last Filed: 06/17/19 16:51> ROS Statement: Those systems with pertinent positive or pertinent negative responses have been documented in the HPI. Past Medical History Past Medical History: No Reported History History of Any Multi-Drug Resistant Organisms: None Reported Past Surgical History: Cholecystectomy Past Psychological History: No Psychological Hx Reported Smoking Status: Never smoker Past Alcohol Use History: None Reported Past Drug Use History: None Reported <Carlos Hollis - Last Filed: 06/15/19 20:59> General Exam Limitations: no limitations <Carlos Hollis - Last Filed: 06/15/19 20:59> - General Exam Comments Initial Comments: Constitutional: NAD, AOX3, Pt has pleasant affect. HEENT: NC/AT, trachea midline, neck supple, no lymphadenopathy. Posterior pharynx non erythematous, without exudates. External ears appear normal, without discharge. Mucous membranes moist. Eyes PERRLA, EOM intact. There is no scleral icterus. No pallor noted. Cardiopulmonary: RRR, no murmurs, rubs or gallops, no JVD noted. Lungs CTAB in anterior and posterior skaggs. No peripheral edema. Abdominal exam: Abdomen soft and non-distended. Abdomen non-tender to palpation in all 4 quadrants. Bowel sounds active in LLQ. No hepatosplenomegaly. No ecchymosis Neuro: CN II-XII grossly intact. No nuchal rigidity. No raccon eyes, no ramos sign, no hemotympanum. No cervical spinal tenderness. MSK: No posterior calf tenderness bilaterally, homans sign negative bilaterally. Posterior tibialis and radial pulse +2 bilaterally. Sensation intact in upper and lower extremities. Full active ROM in upper and lower extremities, 5/5 stregnth. (Carlos Hollis) Course Vital Signs 06/15/19 06/15/19 19:34 21:08 Temperature 98.2 F Pulse Rate 110 H 93 Respiratory 20 20 Rate Blood Pressure 109/69 103/56 O2 Sat by Pulse 99 100 Oximetry Medical Decision Making - Lab Data Result diagrams: 06/15/19 20:10 06/15/19 20:10 <Carlos Hollis - Last Filed: 06/15/19 20:59> - Lab Data Result diagrams: 06/15/19 20:10 06/15/19 20:10 <Kamille Ramirez - Last Filed: 06/17/19 16:51> - Medical Decision Making 34 old female patient who is a approximately 13 weeks gestation presents to the chief complaint of nausea vomiting. Patient reports has been ongoing for approximately 24 hours. Patient was that her BUTTON PUNCHER is Dr. Conteh. Patient states that she was told by her registry rn when these situations arise to come the ER for IV fluids and Zofran. Patient force that she has had this issue and her 3 prior pregnancies. Patient reported that she has very mild amount abdominal cramping from the nausea vomiting. Denies any other abdominal pain, denies any vaginal bleeding, denies any dysuria. Patient vital signs stable, afebrile. Physical exam did not display acute pathology. Laboratory investigations revealed asymptomatic bacteria. Patient placed on Keflex, will discharge with BUTTON PUNCHER follow-up. Case discussed with Dr. Ramirez. (Carlos Hollis) I was available for consultation in the emergency department. The history and physical exam were done by the midlevel provider. I was consulted for this [facility] care. I reviewed the case with the midlevel provider and based on their presentation of the patient, I agree with the assessment, medical decision making and plan of care as documented. Chart was dictated using [employer] dictation software. Attempts were made to correct any dictation errors however some typographical errors may persist. (Kamille Ramirez) - Lab Data Lab Results 06/15/19 06/15/19 06/15/19 Range/Units 20:10 20:10 20:10 WBC 7.2 (3.8-10.6) k/uL RBC 4.23 (3.80-5.40) m/uL Hgb 12.2 (11.4-16.0) gm/dL Hct 35.9 (34.0-46.0) % MCV 84.9 (80.0-100.0) fL MCH 28.9 (25.0-35.0) pg MCHC 34.0 (31.0-37.0) g/dL RDW 11.9 (11.5-15.5) % Plt Count 236 (150-450) k/uL Neutrophils % 71 % Lymphocytes % 20 % Monocytes % 5 % Eosinophils % 2 % Basophils % 0 % Neutrophils # 5.1 (1.3-7.7) k/uL Lymphocytes # 1.5 (1.0-4.8) k/uL Monocytes # 0.4 (0-1.0) k/uL Eosinophils # 0.1 (0-0.7) k/uL Basophils # 0.0 (0-0.2) k/uL Sodium 138 (137-145) mmol/L Potassium 4.3 (3.5-5.1) mmol/L Chloride 105 (98-107) mmol/L Carbon Dioxide 24 (22-30) mmol/L Anion Gap 9 mmol/L BUN 9 (7-17) mg/dL Creatinine 0.46 L (0.52-1.04) mg/dL Est GFR (CKD-EPI)AfAm >90 (>60 ml/min/1.73 sqM) Est GFR (CKD-EPI)NonAf >90 (>60 ml/min/1.73 sqM) Glucose 88 (74-99) mg/dL Calcium 9.6 (8.4-10.2) mg/dL HCG, Quant 452864.0 mIU/mL Urine Color Yellow Urine Appearance Cloudy H (Clear) Urine pH 6.5 (5.0-8.0) Ur Specific [place] 1.020 (1.001-1.035) Urine Protein Trace H (Negative) Urine Glucose (UA) Negative (Negative) Urine Ketones Negative (Negative) Urine Blood Negative (Negative) Urine Nitrite Negative (Negative) Urine Bilirubin Negative (Negative) Urine Urobilinogen 2.0 (<2.0) mg/dL Ur Leukocyte Esterase Moderate H (Negative) Urine RBC 3 (0-5) /hpf Urine WBC 5 (0-5) /hpf Ur Squamous Epith Cells 7 H (0-4) /hpf Urine Bacteria Occasional H (None) /hpf Urine Mucus Many H (None) /hpf Disposition Is patient prescribed a controlled substance at d/c from ED?: No <Carlos Hollis - Last Filed: 06/15/19 20:59> <Kamille Ramirez - Last Filed: 06/17/19 16:51> Clinical Impression: Nausea and vomiting during Disposition: HOME SELF-CARE Condition: Stable Instructions (If sedation given, give patient instructions): Acute Nausea and Vomiting (ED) Additional Instructions: Patient to adhere to previously discussed treatment plan and will take medication(s) as directed. Patient to follow up with PCP in 1-2 days. Patient to return to ED if symptoms do not improve. Follow-up with BUTTON PUNCHER tomorrow. Return to ER if condition worsens. Prescriptions: Cephalexin [Keflex] 500 mg PO Q12HR 7 Days #14 cap Referrals: None,Stated [Primary Care Provider] - 1-2 days
[2019-06-15 20:23] LABS: Basophils % (A) 0 %; Eosinophils # (A) 0.1 k/uL (0-0.7); Eosinophils % (A) 2 %; HCT 35.9 % (34.0-46.0); HGB 12.2 gm/dL (11.4-16.0); Lymphocytes # (A) 1.5 k/uL (1.0-4.8); Lymphocytes % (A) 20 %; MCH 28.9 pg (25.0-35.0); MCV 84.9 fL (80.0-100.0); Mean Platelet Volume 6.2; Monocytes # (A) 0.4 k/uL (0-1.0); Monocytes % (A) 5 %; Neutrophils # (A) 5.1 k/uL (1.3-7.7); Neutrophils % (A) 71 %; Platelet Count 236 k/uL (150-450); RBC 4.23 m/uL (3.80-5.40); RDW 11.9 % (11.5-15.5); WBC 7.2 k/uL (3.8-10.6)
[2019-06-15 20:25] LABS: Appearance,Urine Cloudy (Clear); Bacteria,Urine Occasional /hpf; Bilirubin,Urine Negative (Negative); Blood,Urine Negative (Negative); Color,Urine Yellow; Glucose,Urine (UA) Negative (Negative); Ketones,Urine Negative (Negative); Leukocyte Esterase,Urine Moderate (Negative); Mucus,Urine Many /hpf; Nitrite,Urine Negative (Negative); PH, Urine 6.5 (5.0-8.0); Protein,Urine Trace (Negative); RBC,Urine 3 /hpf (0-5); Squamous Epithelial Cell,Urine 7 /hpf (0-4)
[2019-06-15 20:30] LABS: African American GFR (CKD) >90 (>60 ml/min/1.73 sqM); Anion Gap 9 mmol/L; Blood Urea Nitrogen 9 mg/dL (7-17); Calcium 9.6 mg/dL (8.4-10.2); Carbon Dioxide 24 mmol/L (22-30); Chloride 105 mmol/L (98-107); Glucose 88 mg/dL (74-99); Potassium 4.3 mmol/L (3.5-5.1); Sodium 138 mmol/L (137-145)
[2019-06-15] MEDS ORDERED: CEPHALEXIN 500 MG CAP PO STA (20:37)
[2019-06-15] MEDS ORDERED: CEPHALEXIN 500MG STARTER PACK 4 CAP BTL PO STA (20:37)
[2019-06-15 21:09] VITALS: BP 103/56; PULSE 93
== END 2019-06-15 21:14 | disposition home or self-care (01) ==
LOC: EC 19:21
DX: O21.8 Other vomiting complicating pregnancy (principal); Z3A.13 13 weeks gestation of pregnancy; Z88.2 Allergy status to sulfonamides; Z90.49 Acquired absence of other specified parts of digestive tract
CPT/HCPCS: 36415; 80048; 85025; 81001; 84702; 99284; 96374; 96361; J2405

== ENCOUNTER 2019-09-19 16:26 | Outpatient (CLI) | payer OTHER ==
[2019-09-19 16:53] LABS: Appearance,Urine Clear (Clear); Bilirubin,Urine Negative (Negative); Blood,Urine Negative (Negative); Color,Urine Light Yellow; Glucose,Urine (UA) Negative (Negative); Ketones,Urine Negative (Negative); Leukocyte Esterase,Urine Negative (Negative); Nitrite,Urine Negative (Negative); Protein,Urine Negative (Negative); Urobilinogen,Urine <2.0 mg/dL (<2.0)
[2019-09-19] MEDS: LACTATED RINGERS 1,000 ML IV ONE ×2 (16:55→17:40)
[2019-09-19 17:45] VITALS: BP 120/62; PULSE 88; RESP 16; TEMP 97.2
--- NOTE | 2019-09-19 21:18 | P.MSEPDOC ---
Presenting Problems - Arrival Data Date of Arrival on Unit: 09/19/19 Time of Arrival on Unit: 16:26 Mode of Transport: Ambulatory - Complaint OB-Reason for Admission/Chief Complaint: Pain, Signs/Symptoms UTI Medical History - Information : 4 Para: 3 Term: 3 : 0 Abortions: Spontaneous or Elective: 0 Number of Living Children: 3 - Gestational Age Gestational Age by LULU (wks/days): 26 Weeks and 4 Days Review of Systems - Review of Systems Constitutional: No problems Breast: No problems ENT: No problems Cardiovascular: No problems Respiratory: No problems Gastrointestinal: No problems Genitourinary: No problems Musculoskeletal: No problems Neurological: No problems Skin: No problems Vital Signs - Temperature Temperature: 97.2 F Temperature Source: Tympanic - Pulse Right Brachial Pulse Rate: 88 Pulse Assessment Method: Automatic Cuff - Respirations Respiratory Rate: 16 Oxygen Delivery Method: Room Air - Blood Pressure Right Arm Blood Pressure: 120/62 Blood Pressure Mean: 81 Blood Pressure Source: Automatic Cuff Medical Screen Scoring (Pre) - Cervical Exam Dilation: 0 cm = 0 Membranes: Intact - Uterine Contractions Frequency: < 36 weeks = 6 - Maternal Vital Signs Maternal Temperature: N/A Maternal Blood Pressure: N/A Signs of Preeclampsia: N/A Maternal Respirations: N/A - Maternal Trauma Maternal Trauma: N/A - Assessment - Baby A Baseline FHR: 135 Heart Rate - NICHD Category: Category I (Normal) = 0 NST: Reactive Position: N/A Station: N/A - Total Score - Baby A Total Score - Baby A: 6 - Total Score - Baby B Total Score - Baby B: 6 - Total Score - Baby C Total Score - Baby C: 6 - Level of Risk - Baby A Level of Risk - Baby A: Medium (6-9) - Level of Risk - Baby B Level of Risk - Baby B: Medium (6-9) - Level of Risk - Baby C Level of Risk - Baby C: Medium (6-9) Physician Notification (Pre) - Physician Notified Physician Notified Date: 09/19/19 Physician Notified Time: 16:51 New Order Received: Yes - Notification Comment Comment: start IV, send FFN Medical Screen Scoring (Post) - Cervical Exam Dilation: 0 cm = 0 Membranes: Intact - Uterine Contractions Frequency: > 5 minutes apart = 1 Duration: N/A Intensity: N/A - Maternal Vital Signs Maternal Temperature: N/A Maternal Blood Pressure: N/A Signs of Preeclampsia: N/A Maternal Respirations: N/A - Pain Assessment Pain Location and Character: Abdomen Pain Scale Used: Numeric (1 - 10) Pain Intensity: 2 Pain Management Goal: 2 - Assessment - Baby A Heart Rate: 135 Heart Rate - NICHD Category: Category I (Normal) = 0 Position: N/A Station: N/A - Total Score Total Score - Baby A: 1 Total Score - Baby B: 1 Total Score - Baby C: 1 - Post Treatment Level of Risk Post Treatment Level of Risk - Baby A: Low (0-5) Physician Notification (Post) - Physician Notified Physician Notified Date: 09/19/19 Physician Notified Time: 18:12 Physician/Practitioner Notified:: Dr. Nieto Spoke With: Dr. Nieto New Order Received: Yes - Notification Comment Comment: d/c home Disposition - Disposition OB Disposition: Discharge to home Discharge Date: 09/19/19 Discharge Time: 18:37 I agree with the RN Medical Screening Exam: No Physician's MSE Comment: I cannot agree due to lack of documentation. Patient presented at 26 weeks and 5 days complaining of cramping, tightness in her abdomen. When she was on the monitor the heart tones had moderate variability were category 1. She was having some irritability and contractions intermittently. fibronectin was negative but I did start IV fluids and gave her 2 L. After the fluid her contractions spaced out she did feel better, like her abdomen wasn't getting as tight or uncomfortable. She was discharged home after the fibronectin came back negative. Signs and symptoms of labor were again reviewed. Risk & Benefit of care provided described in d/c instruction: Yes Diagnosis: FALSE LABOR BEFORE 37 COMPLETED WEEKS OF GEST, SECOND TRI
== END 2019-09-19 19:47 | disposition home or self-care (01) ==
LOC: FBPOP 16:26
PROVIDERS: ATTEND Obstetrics & Gynecology
DX: O47.02 False labor before 37 completed weeks of gestation, second trimester (principal); Z3A.26 26 weeks gestation of pregnancy
CPT/HCPCS: 96360; 96361; 82731; 81003; G0463; 99214

== ENCOUNTER 2019-10-21 01:53 | Outpatient (CLI) | payer OTHER ==
[2019-10-21 02:38] LABS: Appearance,Urine Clear (Clear); Bilirubin,Urine Negative (Negative); Blood,Urine Negative (Negative); Color,Urine Light Yellow; Glucose,Urine (UA) Negative (Negative); Ketones,Urine Negative (Negative); Leukocyte Esterase,Urine Negative (Negative); Nitrite,Urine Negative (Negative); Protein,Urine Negative (Negative); Specific Gravity,Urine 1.014 (1.001-1.035); Urobilinogen,Urine <2.0 mg/dL (<2.0)
[2019-10-21] MEDS: LACTATED RINGERS 1,000 ML IV SCH ×2 (02:40→03:18)
[2019-10-21 04:30] VITALS: BP 110/65; PULSE 88; RESP 16; TEMP 97.6
--- NOTE | 2019-10-21 20:20 | P.MSEPDOC ---
Presenting Problems - Arrival Data Date of Arrival on Unit: 10/21/19 Time of Arrival on Unit: 01:53 Mode of Transport: Ambulatory - Complaint OB-Reason for Admission/Chief Complaint: Possible Onset of Labor Comment: Contractions every 2 minutes since 2200, pain 5/10. Medical History - Information : 4 Para: 3 Term: 3 : 0 Abortions: Spontaneous or Elective: 0 Number of Living Children: 3 - Gestational Age Gestational Age by LULU (wks/days): 31 Weeks and 1 Days Review of Systems - Review of Systems Constitutional: No problems Breast: No problems ENT: No problems Cardiovascular: No problems Respiratory: No problems Gastrointestinal: No problems Genitourinary: No problems Musculoskeletal: No problems Neurological: No problems Skin: No problems Vital Signs - Temperature Temperature: 97.6 F Temperature Source: Temporal Artery Scan - Pulse Right Brachial Pulse Rate: 88 Pulse Assessment Method: Automatic Cuff - Respirations Respiratory Rate: 16 Oxygen Delivery Method: Room Air O2 Sat by Pulse Oximetry: 98 - Blood Pressure Right Arm Blood Pressure: 110/65 Blood Pressure Mean: 80 Blood Pressure Source: Automatic Cuff Medical Screen Scoring (Pre) - Cervical Exam Dilation: 0 cm = 0 Effacement: Exam Deferred Membranes: Intact - Uterine Contractions Frequency: < 36 weeks = 6 Duration: > 40 seconds = 2 Intensity: N/A - Maternal Vital Signs Maternal Temperature: N/A Maternal Blood Pressure: N/A Signs of Preeclampsia: N/A Maternal Respirations: N/A - Maternal Trauma Maternal Trauma: N/A - Assessment - Baby A Baseline FHR: 135 Heart Rate - NICHD Category: Category I (Normal) = 0 NST: Reactive - Total Score - Baby A Total Score - Baby A: 8 - Total Score - Baby B Total Score - Baby B: 8 - Total Score - Baby C Total Score - Baby C: 8 - Level of Risk - Baby A Level of Risk - Baby A: Medium (6-9) - Level of Risk - Baby B Level of Risk - Baby B: Medium (6-9) - Level of Risk - Baby C Level of Risk - Baby C: Medium (6-9) Physician Notification (Pre) - Physician Notified Physician Notified Date: 10/21/19 Physician Notified Time: 02:14 New Order Received: Yes - Notification Comment Comment: 0214 Reported pt saritha every 1-3 mins, fingertip/thick/high, pt breathing through contractions, orders to iv hydrate send ffn, UA. 0322 Reported negative UA, FFN, first bag LR infused. Orders for second bag. Recheck if saritha after complete. 0407 Pt second bag LR complete, saritha but no longer feeling them, irritability pattern. Orders to d/c home follow up 10/27. Disposition - Disposition OB Disposition: Discharge to home, Written follow up instructions reviewed Discharge Date: 10/21/19 Discharge Time: 04:13 I agree with the RN Medical Screening Exam: Yes Risk & Benefit of care provided described in d/c instruction: Yes Diagnosis: FALSE LABOR BEFORE 37 COMPLETED WEEKS OF GEST, THIRD TRI
== END 2019-10-21 04:13 | disposition home or self-care (01) ==
LOC: FBPOP 01:53
PROVIDERS: ATTEND Obstetrics & Gynecology
DX: O47.03 False labor before 37 completed weeks of gestation, third trimester (principal); Z3A.31 31 weeks gestation of pregnancy
CPT/HCPCS: 59025; 96360; 82731; 81003; G0463; 99214

== ENCOUNTER 2019-12-22 06:02 | Inpatient (IN) | payer OTHER ==
--- NOTE | 2019-12-21 14:09 | P.HPOB ---
History of Present Illness H&P Date: 12/21/19 Chief Complaint: Induction of labor This is a 34 y.o. female, 4, para 3, with an estimated date of confinement of 12/22/2019, estimated gestational age of 40-0/7 weeks, who presents for induction of labor due to advanced maternal age. She admits to good movement. was complicated by marginal cord insertion. She was aware she needed twice weekly NSTs, but had a gap in her care from 32 to 38 weeks due to her concern for coming into the office due to COVID-19 outbreak. labs: Hepatitis B surface antigen-neg RPR-NR Rubella-immune Blood type-A neg, rhogam given at 30 weeks Antibody screen-neg Hemoglobin-12.1 Random glucose-69 [id number] MSAFP-neg 1 hr. GTT-63 GBS-neg Review of Systems Constitutional: Denies chills, Denies fever Eyes: denies blurred vision, denies pain Ears, nose, mouth and throat: Denies headache, Denies sore throat Cardiovascular: Denies chest pain, Denies shortness of breath Gastrointestinal: Reports abdominal pain (Irreg. ctxs) Genitourinary: Reports pelvic pain, Reports Musculoskeletal: Reports low back pain Integumentary: Denies pruritus, Denies rash Neurological: Denies numbness, Denies weakness Psychiatric: Denies anxiety, Denies depression Past Medical History Past Medical History: No Reported History History of Any Multi-Drug Resistant Organisms: None Reported Past Surgical History: Cholecystectomy Past Psychological History: No Psychological Hx Reported Smoking Status: Never smoker Past Alcohol Use History: None Reported Past Drug Use History: None Reported - Past Family History Mother Family Medical History: No Reported History Medications and Allergies Home Medications Medication Instructions Recorded Confirmed Type 78/Iron/Folate 1/Dha 1 tab PO ONCE 10/21/19 10/21/19 History [Prenate Dha Softgel] Allergies Allergy/AdvReac Type Severity Reaction Status Date / Time Sulfa (Sulfonamide Allergy Rash/Hives Verified 10/21/19 02:01 Antibiotics) Exam Osteopathic Statement: *. No significant issues noted on an osteopathic structural exam other than those noted in the History and Physical/Consult. HEENT: within normal limits Heart: regular rate and rhythm Lungs: clear to auscultation bilaterally Abdomen: , non-tender heart tones: reactive Contractions: irregular Extremities: neg. David's. Assessment and Plan (1) 40 weeks gestation of Status: Acute Code(s): Z3A.40 - 40 WEEKS GESTATION OF SNOMED Code(s): 81058339 (2) Advanced maternal age (AMA) in Status: Acute Code(s): PVB4103 - SNOMED Code(s): 290572171 Plan: Proceed with oxytocin induction of labor. Expectant management. Epidural anesthesia if desired.
[2019-12-22] MEDS ORDERED: TERBUTALINE 1 MG/ML VIAL SQ PRN (06:12)
[2019-12-22] MEDS ORDERED: LIDOCAINE 0.5% (PF) 5 MG/ML (50 ML SDV) SQ PRN (06:12)
[2019-12-22] MEDS ORDERED: OXYTOCIN 10 UNIT/ML 1 ML VIAL IM PRN (06:12)
[2019-12-22] MEDS ORDERED: OXYTOCIN 30 UNITS/500 ML NS 30 UNIT in SALINE 1 500ML.BAG IV SCH (06:12)
[2019-12-22] MEDS ORDERED: CARBOPROST TROMETHAMINE 250 MCG/ML 1 ML AMP IM PRN (06:12)
[2019-12-22] MEDS ORDERED: METHYLERGONOVINE 0.2 MG/ML 1 ML AMP IM PRN (06:12)
[2019-12-22] MEDS ORDERED: LIDOCAINE 1% (10MG/ML) FOR IV START INTRADERMA PRN (06:12)
[2019-12-22] MEDS: LACTATED RINGERS 1,000 ML IV SCH ×2 (06:40→14:11)
[2019-12-22 06:45] LABS: Basophils # (A) 0.1 k/uL (0-0.2); Basophils % (A) 1 %; Eosinophils # (A) 0.1 k/uL (0-0.7); Eosinophils % (A) 1 %; HGB 10.4 gm/dL (11.4-16.0); Hypochromasia Slight; Lymphocytes # (A) 1.4 k/uL (1.0-4.8); Lymphocytes % (A) 17 %; MCH 25.6 pg (25.0-35.0); MCHC 31.4 g/dL (31.0-37.0); MCV 81.6 fL (80.0-100.0); Mean Platelet Volume 8.3; Monocytes # (A) 0.5 k/uL (0-1.0); Monocytes % (A) 6 %; Neutrophils % (A) 72 %; Platelet Count 236 k/uL (150-450); RBC 4.05 m/uL (3.80-5.40); RDW 15.5 % (11.5-15.5); WBC 8.4 k/uL (3.8-10.6)
[2019-12-22] MEDS ORDERED: fentaNYL (PF) 50 MCG/ML 5 ML AMP ONE (13:50)
[2019-12-22] MEDS ORDERED: SODIUM CHLORIDE 0.9% 100 ML BAG ONE (13:50)
[2019-12-22] MEDS ORDERED: ROPIVACAINE 5MG/ML 20ML VIAL ONE (13:50)
[2019-12-22] MEDS ORDERED: OXYTOCIN 20 UNITS/1000 ML NS 1,000 ML IV SCH (16:24)
[2019-12-22] MEDS ORDERED: HYDROCORTISONE 2.5% RECTAL CREAM 30 GM TUBE RECTAL PRN (16:24)
[2019-12-22] MEDS ORDERED: diphenhydrAMINE 50 MG/ML 1 ML VIAL IVP PRN ×2 (16:24)
[2019-12-22] MEDS ORDERED: SIMETHICONE 80 MG CHEWABLE PO PRN (16:24)
[2019-12-22] MEDS ORDERED: IBUPROFEN 600 MG TAB PO PRN (16:24)
[2019-12-22] MEDS ORDERED: PRENATAL VIT-IRON-FOLIC ACID 1 EACH CAP PO ONE (16:24)
[2019-12-22] MEDS ORDERED: diphenhydrAMINE 50 MG CAP PO PRN (16:24)
[2019-12-22] MEDS ORDERED: ACETAMINOPHEN TAB 325 MG TAB PO PRN (16:24)
[2019-12-22] MEDS ORDERED: LANOLIN CREAM 5 GM TUBE TOPICAL PRN (16:24)
[2019-12-22] MEDS ORDERED: WITCH HAZEL 1 EACH MED..PAD TOPICAL PRN (16:24)
[2019-12-22] MEDS ORDERED: ZOLPIDEM 5 MG TAB PO PRN (16:24)
[2019-12-22] MEDS ORDERED: diphenhydrAMINE 25 MG CAP PO PRN (16:24)
[2019-12-22] MEDS ORDERED: BENZOCAINE/MENTHOL SPRAY 1 GM/SPRAY AEROSOL TOPICAL PRN (16:24)
--- NOTE | 2019-12-22 16:54 | P.PROBDLV ---
Vaginal Delivery Note - . Vaginal Delivery Note: The patient progressed to complete dilation after oxytocin induction of labor and artificial rupture of membranes with clear fluid noted. She did receive epidural anesthesia. Once reaching complete, she began pushing. Infant's head came to a crown. With one further push, the infant's head delivered across the perineum followed by the anterior shoulder. Nose and mouth were bulb suctioned. With one further push, the remainder the infant easily delivered reducing nuchal cord times one around the body with delivery. was placed on mother's abdomen. Cord was clamped and cut. Infant was then taken to warmer for evaluation. A viable male infant was noted with scores of 7 at 1 minute and 9 at 5 minutes and weight of 7 lbs. 9 oz. Placenta delivered shortly thereafter, intact, with a three-vessel cord. Uterus contracted well after oxytocin was given and uterine massage was carried out. Inspection of the perineum revealed no perineal lacerations. Estimated blood loss was approximately 100 mL's. Both mother and infant are in stable condition.
[2019-12-22] MEDS: SENNOSIDES-DOCUSATE SODIUM 1 EACH TAB PO SCH (19:58)
[2019-12-22] MEDS ORDERED: Rhogam IMMUNE GLOBULIN 1,500 UNIT/1 ML IM ONE (21:30)
[2019-12-23 05:45] LABS: Basophils % (A) 0 %; Eosinophils # (A) 0.1 k/uL (0-0.7); Eosinophils % (A) 1 %; HCT 27.9 % (34.0-46.0); Hypochromasia Slight; Lymphocytes # (A) 1.5 k/uL (1.0-4.8); Lymphocytes % (A) 13 %; MCH 26.4 pg (25.0-35.0); MCHC 32.4 g/dL (31.0-37.0); MCV 81.6 fL (80.0-100.0); Mean Platelet Volume 8.2; Monocytes # (A) 0.6 k/uL (0-1.0); Monocytes % (A) 5 %; Neutrophils # (A) 8.8 k/uL (1.3-7.7); Neutrophils % (A) 78 %; Platelet Count 193 k/uL (150-450); RBC 3.42 m/uL (3.80-5.40); RDW 15.7 % (11.5-15.5); WBC 11.3 k/uL (3.8-10.6)
[2019-12-23] MEDS: SENNOSIDES-DOCUSATE SODIUM 1 EACH TAB PO SCH (07:37)
--- NOTE | 2019-12-23 08:56 | P.DS ---
Providers Date of admission: 12/22/19 06:02 Expected date of discharge: 12/23/19 Attending physician: Kacy Conteh Primary care physician: Stated None - Discharge Diagnosis(es) (1) 40 weeks gestation of Current Visit: No Status: Acute (2) Advanced maternal age (AMA) in Current Visit: No Status: Acute Hospital Course: This is a 34-year-old female 4 para 3 at 40-0/7 weeks who presented for induction of labor. She underwent oxytocin induction of labor and delivered vaginally a viable male with scores of 7 at 1 minute and 9 at 5 minutes and infant weight of 7 lbs. 9 oz. Her course has been essentially uncomplicated. Lochia is decreasing. Her pain is fairly well controlled. She is working on breast-feeding. Vital signs are stable. Abdomen is soft with fundus firm and nontender. Extremities show negative Homans. Impression is status post vaginal delivery day #1. Plan is to discharge home today. Routine instructions are given. She is advised to follow up in the office in 6 weeks for a check. She is advised to call the office if she has any further questions or concerns prior to her appointment time. Procedures: Oxytocin induction of labor Spontaneous vaginal delivery of a viable male infant on 12/22/2019 Patient Condition at Discharge: Stable Plan - Discharge Summary New Discharge Prescriptions: New Ibuprofen [Motrin] 600 mg PO Q6HR PRN #60 tab PRN Reason: Mild Pain Or Fever >= 100.5 Continue 78/Iron/Folate 1/Dha [Prenate Dha Softgel] 1 tab PO ONCE Discharge Medication List 78/Iron/Folate 1/Dha [Prenate Dha Softgel] 1 tab PO ONCE 10/21/19 [History] Ibuprofen [Motrin] 600 mg PO Q6HR PRN #60 tab 12/23/19 [Rx] Follow up Appointment(s)/Referral(s): Kacy Conteh DO [Doctor of Osteopathic Medicine] - 6 Weeks Activity/Diet/Wound Care/Special Instructions: Instructions 1. Do not begin any exercise program for 3 weeks. 2. Do not resume sexual relations for 3 weeks or longer if uncomfortable. 3. You may take tub baths or showers at any time. 4. You may use tampons if desired after 3 weeks. 5. Keep the area of episiotomy (stitches) clean and dry. 6. If you are not nursing, wear a good fitting, supportive bra during the day and limit fluid intake for at least 1 week to prevent breast engorgement. 7. Call the office, [phone], within the next week to make appointment for your 6 week checkup if it has not already been made. 8. Report any of the following occurrences to the doctor promptly: a. Heavy, excessive bleeding b. Chills, fever c. Burning or frequency of urination d. Pain or redness and breasts if nursing e. Increasing pain or swelling in episiotomy (stitches). In addition to the above instructions, the following additional should be followed: 1. No heavy lifting or straining (exercising) until after 6 week checkup. 2. Keep abdominal incision clean and dry: You may wear a dressing if more comfortable. 3. Make office appointment for 10 days after going home or as instructed by her doctor. Discharge Disposition: HOME SELF-CARE
[2019-12-23 16:31] VITALS: BP 107/68; PULSE 83; RESP 15; TEMP 98.4
== END 2019-12-23 16:29 | disposition home or self-care (01) | DRG 807 ==
LOC: 4FBP 06:02
PROVIDERS: ADMIT Obstetrics & Gynecology; ATTEND Obstetrics & Gynecology
PROC: 10E0XZZ Delivery of Products of Conception, External Approach (ICD-10-PCS; principal; 2019-12-22)
PROC: 10907ZC Drainage of Amniotic Fluid, Therapeutic from Products of Conception, Via Natural or Artificial Opening (ICD-10-PCS; 2019-12-22)
PROC: 3E033VJ Introduction of Other Hormone into Peripheral Vein, Percutaneous Approach (ICD-10-PCS; 2019-12-22)
PROC: 3E0R3BZ Introduction of Anesthetic Agent into Spinal Canal, Percutaneous Approach (ICD-10-PCS; 2019-12-22)
DX: O43.123 Velamentous insertion of umbilical cord, third trimester (principal); Z37.0 Single live birth; O69.81X0 Labor and delivery complicated by cord around neck, without compression, not applicable or unspecified; Z3A.40 40 weeks gestation of pregnancy; Z79.899 Other long term (current) drug therapy; Z90.49 Acquired absence of other specified parts of digestive tract; Z88.2 Allergy status to sulfonamides
CPT/HCPCS: 85025; 85461; 86850; 86870; 86880; 86900; 86901

== ENCOUNTER → 2024-11-19 | Outpatient (CLI) | payer OTHER ==
--- NOTE | 2024-11-19 11:28 | MM ---
Reason for Exam: Clinical finding. Baseline mammogram. Indicated Problems: Lump or thickening of the right side for 2 Day(s). Patient History: Menarche at age 10. First Full-Term at age 18. Last menstrual period: 10/27/2024 Risk Values: Trinity 5 year model risk: 0.5%. NCI Lifetime model risk: 9.0%. Prior Study Comparison: Patient's first Mammogram. No prior studies available for comparison. Tissue Density: The breasts are heterogeneously dense, which may obscure small masses. Findings: Analyzed By CAD. Asymmetric density at the site of the palpable abnormality in her lower right breast periareolar region. Ultrasound is recommended. No suspicious microcalcifications are seen within either breast. Overall Assessment: Incomplete: need additional imaging evaluation, BI-RAD 0 Management: Diagnostic Breast Ultrasound of the right breast. . Results were given to the patient verbally at the time of exam. Patient should continue monthly self-breast exams. A clinical breast exam by your physician is recommended on an annual basis. This exam should not preclude additional follow-up of suspicious palpable abnormalities. Note on Trinity scores and lifetime risk: 1. A Trinity score greater than 3% is considered moderate risk. If this is the case, consider specialist referral to assess eligibility for a risk reducing agent. 2. If overall lifetime risk for the development of breast cancer is 20% or higher, the patient may qualify for future screening with alternating mammogram and breast MRI. [facility], , 11/19/2024 11:25 AM. Electronically signed and approved by: Quintin White M.D. Radiologis
--- NOTE | 2024-11-19 12:01 | USB ---
Reason for Exam: Clinical finding. Patient History: Menarche at age 10. First Full-Term at age 18. Risk Values: Trinity 5 year model risk: 0.5%. NCI Lifetime model risk: 9.0%. Technique: Method: Targeted. Findings: The axilla of the right breast and the retroareolar of the right breast were scanned. Enlarged duct measuring 1.8 x 1.2 cm filled with swirling debris. Distinct solid nodule is not appreciated at this time. Three-month follow-up recommended. No distinct solid mass appreciated at this time. Overall Assessment: Probably benign, BI-RAD 3 Management: Diagnostic Breast Ultrasound of the right breast in 3 months. A clinical breast exam by your physician is recommended on an annual basis and results should be correlated with mammographic findings. This exam should not preclude additional follow-up of suspicious palpable abnormalities. Results were given to the patient verbally at the time of exam. [facility], , 11/19/2024 11:56 AM. Electronically signed and approved by: Quintin White M.D. Radiologis
== END | disposition home or self-care (01) ==
LOC: RADMAMWWP 11:03
PROVIDERS: ATTEND Family Medicine
DX: N63.10 Unspecified lump in the right breast, unspecified quadrant (principal); R92.333 Mammographic heterogeneous density, bilateral breasts
CPT/HCPCS: 77062; 77066